=== PATIENT | male | born 1935 | race Caucasian/White ===

== ENCOUNTER 2022-02-24 03:28 | Inpatient (IN) | payer MEDICARE, BC ==
[~2022-02-24] VITALS: Ht 177.8 cm; Wt 68.1 kg
[2022-02-24 03:59] LABS: Basophils # (auto) 0.1 10 ^3/uL (0-0.2); Basophils % (auto) 0.9 % (0.0-2.0); Eosinophils # (auto) 0.1 10 ^3/uL (0-0.8); Eosinophils % (auto) 1.5 % (0.0-7.0); Hematocrit 39.5 % (41.0-53.0); Hemoglobin 14.1 g/dL (13.5-17.5); Lymphocytes # (auto) 1.5 10 ^3/uL (0.4-5.4); Lymphocytes % (auto) 16.2 % (10.0-50.0); Mean Corpuscular Hemoglobin 31.5 pg (28.0-32.0); Mean Corpuscular Hgb Conc. 35.7 g/dL (32.0-36.0); Mean Corpuscular Volume 88.3 fL (80.0-100.0); Monocytes # (auto) 0.6 10 ^3/uL (0-1.3); Monocytes % (auto) 6.3 % (0.0-12.0); Neutrophils % (auto) 75.1 % (37.0-80.0); Nucleated Red Blood Cells % 0.1 %; Red Blood Cells 4.47 10^6/uL (4.5-5.90); Red Cell Distribution Width 13.3 % (11.8-14.3); White Blood Cell 9.3 10^3/uL (4.4-10.8)
[2022-02-24 04:16] LABS: Albumin 3.9 g/dL (3.4-5.0); BUN/Creatinine Ratio 28.2; Potassium 4.1 mmol/L (3.5-5.1)
[2022-02-24 04:19] LABS: Bilirubin, Total 0.9 mg/dL (0.2-1.0); Total Protein 7.5 g/dL (6.4-8.2)
[2022-02-24] MEDS ORDERED: LACTATED RINGER'S 1,000 ML IV ONE (04:45)
[2022-02-24] MEDS ORDERED: cloNIDine HCL 0.1 MG TAB PO ONE (04:45)
[2022-02-24 05:12] LABS: Urine Bacteria FEW /hpf (None Seen); Urine Blood 1+ /uL (Negative); Urine Mucus FEW (None Seen); Urine Specific Gravity 1.015 (1.001-1.035); Urine WBC 5 /hpf (0 - 3)
[2022-02-24] MEDS ORDERED: MORPHINE SULFATE 4 MG/ML SYR/VIAL IV ONE (06:15)
[2022-02-24] MEDS ORDERED: MAALOX PLUS or MAALOX 30 ML PO ONE (06:15)
[2022-02-24] MEDS ORDERED: HEPARIN SODIUM (PORCINE) 5000 UNITS/ML 1ML VIAL IV ONE (06:15)
[2022-02-24] MEDS ORDERED: ONDANSETRON HCL 4 MG/2 ML VIAL IV PRN (06:15)
[2022-02-24] MEDS ORDERED: ACETAMINOPHEN 325 MG TAB PO PRN (06:15)
[2022-02-24] MEDS ORDERED: MORPHINE SULFATE INJ 2 MG/ml SYRG IV PRN (06:15)
[2022-02-24] MEDS ORDERED: NITROGLYCERIN 0.4 MG SL TAB SL PRN ×2 (06:15)
[2022-02-24] MEDS ORDERED: MORPHINE SULFATE 4 MG/ML SYR/VIAL IV PRN (06:15)
[2022-02-24] MEDS ORDERED: SODIUM CHLORIDE 0.9% 1,000 ML IV SCH (06:15)
[2022-02-24] MEDS ORDERED: ONDANSETRON HCL 4 MG/2 ML VIAL IV ONE (06:15)
[2022-02-24] MEDS ORDERED: HEPARIN DRIP/D5W 100UNITS/ML 250 ML IV SCH (06:15)
[2022-02-24 06:30] LABS: Basophils # (auto) 0 10 ^3/uL (0-0.2); Basophils % (auto) 0.6 % (0.0-2.0); Eosinophils # (auto) 0.1 10 ^3/uL (0-0.8); Eosinophils % (auto) 1.3 % (0.0-7.0); Hemoglobin 13.3 g/dL (13.5-17.5); Lymphocytes # (auto) 1.3 10 ^3/uL (0.4-5.4); Lymphocytes % (auto) 15.9 % (10.0-50.0); Mean Corpuscular Hemoglobin 31.3 pg (28.0-32.0); Mean Corpuscular Volume 89.3 fL (80.0-100.0); Monocytes # (auto) 0.5 10 ^3/uL (0-1.3); Monocytes % (auto) 6.1 % (0.0-12.0); Neutrophils # (auto) 6.1 10 ^3/uL (1.6-8.6); Neutrophils % (auto) 76.1 % (37.0-80.0); Nucleated Red Blood Cells % 0.1 %; Red Blood Cells 4.26 10^6/uL (4.5-5.90); Red Cell Distribution Width 13.3 % (11.8-14.3); White Blood Cell 8.1 10^3/uL (4.4-10.8)
[2022-02-24 06:45] LABS: INR 1.08 (0.9-1.15); Partial Thromboplastin Time 30.2 sec (24.6-33.4)
[2022-02-24] MEDS ORDERED: LISINOPRIL 10 MG TAB PO SCH (10:00)
[2022-02-24] MEDS ORDERED: METOPROLOL TARTRATE 25 MG TAB PO SCH (10:00)
[2022-02-24] MEDS ORDERED: DOCUSATE SOD 100 MG CAP PO SCH (10:00)
[2022-02-24] MEDS ORDERED: ASPirin 81 mg TAB PO SCH (10:00)
[2022-02-24] MEDS ORDERED: CLOPIDOGREL BISULFATE 75 MG TAB PO SCH (10:00)
[2022-02-24] MEDS ORDERED: ANGIOMAX 250 MG VIAL IV ONE (10:38)
[2022-02-24] MEDS ORDERED: LIDOCAINE 2%HCL (LOCAL ANESTH.) INJ 20ML MDV ONE (10:38)
[2022-02-24] MEDS ORDERED: SODIUM CHL 0.9% 50 ML ONE (10:38)
[2022-02-24] MEDS ORDERED: MIDAZOLAM HCL 2MG/2ML 2ml VIAL (1mg/ml) ONE (10:38)
[2022-02-24] MEDS ORDERED: fentaNYL CITRATE 100 MCG/2 ML VL ONE (10:38)
[2022-02-24 10:48] VITALS: BP 149/100
[2022-02-24] MEDS ORDERED: IOHEXOL 350 MG/ML 100ML IJ ONE ×4 (10:52→12:18)
[2022-02-24] MEDS ORDERED: EPTIFIBATIDE INJ (2MG/ML) 10ML VIAL IV ONE (11:34)
[2022-02-24] MEDS ORDERED: ADENOSINE 6 MG/2 ML INJ IV ONE (11:35)
[2022-02-24] MEDS ORDERED: CLOPIDOGREL 300 MG TAB ONE (11:39)
[2022-02-24] MEDS ORDERED: ASPirin 325 MG TAB ONE (11:39)
[2022-02-24] MEDS ORDERED: DOPamine 1600MCG/ML D5W 250 ML IV ONE (11:54)
[2022-02-24] MEDS ORDERED: ATROPINE SULF 1 MG/10ml SYR ONE (11:54)
[2022-02-24] MEDS ORDERED: PHENYLEPHRINE IV 250 ML IV ONE (11:59)
[2022-02-24] MEDS ORDERED: ETOMIDATE (2MG/ML) 20ML VIAL IV ONE (12:09)
[2022-02-24] MEDS ORDERED: SUCCINYLCHOLINE CHLORIDE 20 MG/ML 10ML VIAL IV ONE (12:10)
[2022-02-24] MEDS ORDERED: MIDAZOLAM DRIP 50 mg/50mL 50 ML IV ONE (12:11)
[2022-02-24] MEDS ORDERED: NOREPINEPHRINE 8 MG/250ML KIT 250 ML IV ONE (12:21)
[2022-02-24 13:00] LABS: Cholesterol 172 mg/dL (< 200)
[2022-02-24 13:02] LABS: HDL Cholesterol 43 mg/dL (40-59); LDL Cholesterol 121 mg/dL (< 100); Triglycerides 77 mg/dL (< 150)
[2022-02-24] MEDS ORDERED: ATORVASTATIN 20 MG TAB PO SCH (22:00)
[2022-03-01] MEDS ORDERED: MIDAZOLAM DRIP 50 mg/50mL 50 ML IV SCH (11:15)
== END 2022-02-24 15:05 | DRG 246 ==
LOC: ER 03:28 → TELE 06:10 → ICU WEST 12:44
PROVIDERS: ADMIT Internal Medicine Cardiovascular Disease; ATTEND Hospitalist
PROC: 4A023N7 Measurement of Cardiac Sampling and Pressure, Left Heart, Percutaneous Approach (ICD-10-PCS; principal; 2022-02-24)
PROC: 027135Z Dilation of Coronary Artery, Two Arteries with Two Drug-eluting Intraluminal Devices, Percutaneous Approach (ICD-10-PCS; 2022-02-24)
PROC: B2111ZZ Fluoroscopy of Multiple Coronary Arteries using Low Osmolar Contrast (ICD-10-PCS; 2022-02-24)
PROC: B2151ZZ Fluoroscopy of Left Heart using Low Osmolar Contrast (ICD-10-PCS; 2022-02-24)
PROC: 3E073PZ Introduction of Platelet Inhibitor into Coronary Artery, Percutaneous Approach (ICD-10-PCS; 2022-02-24)
PROC: 02703ZZ Dilation of Coronary Artery, One Artery, Percutaneous Approach (ICD-10-PCS; 2022-02-24)
PROC: 0W9D3ZZ Drainage of Pericardial Cavity, Percutaneous Approach (ICD-10-PCS; 2022-02-24)
DX: I21.9 Acute myocardial infarction, unspecified (principal); I50.21 Acute systolic (congestive) heart failure; I25.10 Atherosclerotic heart disease of native coronary artery without angina pectoris; Z20.822 Contact with and (suspected) exposure to COVID-19; Z91.199 Patient's noncompliance with other medical treatment and regimen due to unspecified reason; I11.0 Hypertensive heart disease with heart failure
CPT/HCPCS: 33016; 36415; 71045; 80053; 80061; 81001; 82962; 84484; 85025; 85610; 85730; 86850; 86900; 86901; 86920; 87426; 92928; 93005; 93458; 94002; 96361; 96374; 99152; 99153; 99291; C1874; C1887; G0378; J0153; J0330; J2250